=== PATIENT | female | born 1945 | race Caucasian/White ===

== ENCOUNTER 2017-04-21 06:11 | Day surgery (SDC) | payer MEDICARE, OTHER ==
[2017-04-21] MEDS ORDERED: PROPOFOL 20 ML (06:57)
[2017-04-21] MEDS ORDERED: LIDOCAINE 2% (SDV) 5 ML INJ (06:57)
[2017-04-21] MEDS ORDERED: NEOSTIGMINE 3 MG/3 ML SYRINGE (06:57)
[2017-04-21] MEDS ORDERED: GLYCOPYRROLATE 0.4 MG INJ (06:57)
[2017-04-21] MEDS ORDERED: MIDAZOLAM 1 MG/ML 2 ML INJ (06:57)
[2017-04-21] MEDS ORDERED: ROCURONIUM 50 MG INJ (06:57)
[2017-04-21] MEDS ORDERED: DEXAMETHASONE 4 MG/ML 1 ML INJ (06:58)
[2017-04-21] MEDS ORDERED: FENTAnyl 50 MCG/ML VIAL (06:58)
[2017-04-21] MEDS ORDERED: ONDANSETRON 4 MG INJ (06:58)
[2017-04-21] MEDS ORDERED: CEFAZOLIN 1 GM INJ (07:00)
[2017-04-21] MEDS ORDERED: LABETALOL HCL 20MG INJ IV (07:00)
[2017-04-21] MEDS ORDERED: DIPHENHYDRAMINE 50 MG INJ IV (07:00)
[2017-04-21] MEDS ORDERED: morphine (1 MG/ML) 10ML SYRINGE IV ×3 (07:00)
[2017-04-21] MEDS ORDERED: ONDANSETRON 4 MG INJ IV (07:00)
[2017-04-21] MEDS ORDERED: hydrALAzine 20 MG INJ IV (07:00)
[2017-04-21] MEDS ORDERED: HYDROmorphONE (0.2 MG/ML) 10ML SYG IV ×3 (07:00)
[2017-04-21] MEDS ORDERED: MEPERIDINE 25 MG INJ IV (07:00)
[2017-04-21] MEDS ORDERED: ATROPINE 1 MG/10 ML SYRINGE IV (07:00)
[2017-04-21] MEDS ORDERED: FENTAnyl 50 MCG/ML VIAL IV ×2 (07:00)
[2017-04-21] MEDS ORDERED: MIDAZOLAM 1 MG/ML 2 ML INJ IV (07:00)
[2017-04-21] MEDS ORDERED: EPHEDrine SULFATE 50 MG/5 ML SYG IV (07:00)
[2017-04-21] MEDS ORDERED: LIDOCAINE 1% (MPF) 10 ML INJ (07:44)
[2017-04-21] MEDS ORDERED: SUCCINYLCHOLINE CHLORIDE 100 MG/5 ML SYG IV (08:02)
[2017-04-21] MEDS ORDERED: BUPIVACAINE 0.5% (SDV) 30 ML INJ (08:20)
[2017-04-21] MEDS: BUPIVACAINE 0.5% 30 ML VIAL INJ (08:28)
[2017-04-21] MEDS: POVIDONE IODINE 10% 28.4 GM OINT (08:51)
== END 2017-04-21 10:45 | disposition home or self-care (01) ==
LOC: SDS 06:11
DX: M21.612 Bunion of left foot (principal); E11.9 Type 2 diabetes mellitus without complications; I10 Essential (primary) hypertension; E03.9 Hypothyroidism, unspecified
CPT/HCPCS: 28292; 71045; 88304; 88311